=== PATIENT | female | born 1995 | race Caucasian/White ===

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

== ENCOUNTER 2018-09-04 15:56 | Emergency (ER) | payer BC, OTHER ==
[~2018-09-04] VITALS: Ht 160 cm; Wt 112.5 kg
[~2018-09-04 15:56] MED LIST changes: +CEPH-443 PO; +HYDR-4011 PO; -HYDR-906 PO; +IBUP-1542 PO; +ONDA8TAB14 PO
[2018-09-04 16:31] VITALS: BP 146/71; PULSE 92; RESP 16; Ht 160 cm; Wt 112.5 kg
[2018-09-04] MEDS ORDERED: KETOROLAC 60 MG INJ IM STA (17:25)
--- NOTE | 2018-09-04 18:36 | ERD ---
ER Documentation Chief Complaint Chief Complaint flank pain with sharp pain when voiding. HPI 22-year-old female presents with left-sided flank pain with dysuria and today. She also does states she is on her period. She has had kidney stones in the past. No nausea or vomiting. No hematuria. Denies possibility of . ROS All systems reviewed and are negative except as per history of present illness. Medications Home Meds Active Scripts Cephalexin* (Keflex*) 500 Mg Capsule, 500 MG PO TID for 5 Days, CAP Prov:VEDA DE LA ROSA PA-C 09/04/18 Hydrocodone/Acetaminophen ([place] 5-325 Tablet) 1 Each Tablet, 1 TAB PO Q6H PRN for PAIN, #15 TAB Prov:VEDA DE LA ROSA PA-C 09/04/18 Ibuprofen* (Motrin*) 600 Mg Tab, 600 MG PO Q6H PRN for PAIN AND OR ELEVATED TEMP, #30 TAB Prov:VEDA DE LA ROSA PA-C 09/04/18 Ondansetron (Ondansetron Odt) 8 Mg Tab.rapdis, 8 MG PO Q6H PRN for NAUSEA AND/OR VOMITING, #14 TAB Prov:YOSVANY JONES PA-C 11/14/16 Hydrocodone/Acetaminophen ([place] 5-325 Tablet) 1 Each Tablet, 2 TAB PO Q6H PRN for PAIN, #20 TAB Prov:YOSVANY JONES PA-C 11/14/16 Tamsulosin Hcl* (Flomax*) 0.4 Mg Cap.er.24h, 0.4 MG PO BID, #30 CAP Prov:MARIJA DRAPER PA-C 11/13/16 Hydrocodone/Acetaminophen ([place] 5-325 Tablet) 1 Each Tablet, 1 TAB PO Q6H PRN for PAIN, #7 TAB Prov:MARIJA DRAPER PA-C 11/13/16 Allergies Allergies: Coded Allergies: No Known Allergy (Unverified , 09/04/18) PMhx/Soc Medical and Surgical Hx: pt denies Medical Hx, pt denies Surgical Hx Hx Alcohol Use: No Hx Substance Use: No Hx Tobacco Use: No Smoking Status: Never smoker FmHx Family History: No diabetes Physical Exam Vitals Vital Signs Date Temp Pulse Resp B/P (MAP) Pulse Ox O2 O2 Flow FiO2 Time Delivery Rate 09/04/18 99.5 92 16 146/71 97 16:31 (96) Physical Exam INITIAL VITAL SIGNS: Reviewed by me GENERAL: Awake, alert and oriented x 4, well appearing, nontoxic, speaking in full sentences. No acute distress RESPIRATORY: Clear to auscultation bilaterally. Symmetric chest wall rise. No wheezing or rales. No accessory muscle use. CV: Regular rate and rhythm. No murmurs, rubs, or gallops. ABDOMEN: Soft, non-distended. Nontender. Negative [place]. Negative McBurneys point tenderness. No CVA tenderness bilaterally. No guarding. No rebound. Results 24 hrs Laboratory Tests Test 09/04/18 17:53 09/04/18 18:00 Urine Color RANDY Urine Clarity CLOUDY Urine pH 5.0 Urine Specific [place] 1.031 Urine Ketones NEGATIVE mg/dL Urine Nitrite NEGATIVE mg/dL Urine Bilirubin NEGATIVE mg/dL Urine Urobilinogen NEGATIVE mg/dL Urine Leukocyte Esterase 2+ [place]/ul Urine Microscopic RBC > 182 /HPF Urine Microscopic WBC 102 /HPF Urine Squamous Epithelial Cells FEW /HPF Urine Bacteria FEW /HPF Urine Mucus MANY /HPF Urine Hemoglobin 3+ mg/dL Urine Glucose NEGATIVE mg/dL Urine Total Protein 3+ mg/dl POC Beta HCG, Qualitative NEGATIVE Current Medications Medications Dose Sig/Tony Start Time Status Last (Trade) Ordered Route PRN Stop Time Admin Dose Reason Admin Ketorolac 60 mg ONCE STAT 09/04/18 DC 09/04/18 Tromethamine IM 17:25 18:02 (Toradol) 09/04/18 17:27 Procedures/MDM Patient here with flank pain. She has no CVA tenderness. She does have a history of kidney stones. She is well-appearing in no distress. No nausea or vomiting. No fever. She has hematuria because she is on her period. She is not . She does have UTI on exam. She will be discharged with Keflex as well as pain medication. Patient counseled regarding my diagnostic impression and care plan. Prior to discharge all questions answered. Pt agrees with treatment plan and understands strict return precautions. Pt is instructed to follow up with primary care provider within 24-48 hours. Precautionary instructions provided including instructions to return to the ER if not imp roving or for any worsening or changing symptoms or concerns. Departure Diagnosis: Primary Impression: Cystitis Condition: Stable VEDA DE LA ROSAC Sep 04, 2018 18:36
== END 2018-09-04 20:07 | disposition home or self-care (01) ==
LOC: FTE 15:56
DX: N30.90 Cystitis, unspecified without hematuria (principal)
CPT/HCPCS: 76775; 81001; 81025; 96372; 99285; J1885